=== PATIENT | female | born 1935 | race Caucasian/White ===

== ENCOUNTER 2022-03-27 09:59 | Inpatient (IN) | payer MEDICARE, MEDICAID ==
[~2022-03-27] VITALS: Ht 152.4 cm; Wt 86.2 kg
[2022-03-27] MEDS ORDERED: ONDANSETRON HCL 4MG/2ML INJ IV STA (10:47)
[2022-03-27] MEDS ORDERED: MORPHINE SULFATE 4 MG/ML CPJ (NOT FOR IM USE) IV STA (10:47)
[2022-03-27 10:54] LABS: HEMATOCRIT. 42.5 % (36.0-48.0); HEMOGLOBIN. 14.2 g/dL (12.0-16.0); MEAN CORPUSCULAR HEMOGLOBIN 30.6 pg (28.0-32.0); MEAN CORPUSCULAR VOLUME 91.2 fL (81.0-99.0); MEAN PLATELET VOLUME 8.1 fl (7.4-10.4); PLATELET 154 x1000/uL (130-400); RED BLOOD CELL COUNT 4.66 mill/uL (4.2-5.4); RED CELL DISTRIBUTION WIDTH 14.8 % (11.6-14.6)
[2022-03-27] MEDS ORDERED: SODIUM CHLORIDE 0.9% 250 ML IV ONE (11:00)
[2022-03-27 11:06] LABS: INR 1.1; PARTIAL THROMBOPLASTIN TIME 24.2 sec (23.4-31.0); PROTHROMBIN TIME 11.4 sec (9.6-11.0)
[2022-03-27 11:37] LABS: PLATELET ESTIMATE NORMAL
[2022-03-27 11:48] LABS: BG BASE EXCESS 0.5 mmol/L (-2.0-2.0); BG CARBOXYHEMOGLOBIN 0.5 % (0.5-1.5); BG DEOXYHEMOGLOBIN 8.3 % (0.0-5.0); BG FRACTION INSPIRED OXYGEN 21; BG HCO3 ACT 25.7 mmol/L (22.0-26.0); BG METHEMOGLOBIN 0.3 % (0.0-1.5); BG OXYGEN SATURATION 91.6 % (92.0-98.5); BG OXYHEMOGLOBIN 90.9 % (94.0-97.0); BG PCO2 43.3 mmHg (35.0-45.0); BG PH 7.391 (7.350-7.450); BG SAMPLE SITE RIGHT BRACHIAL; BG TOTAL HEMOGLOBIN 13.7 g/dL (12.0-18.0); BG VENT MODE ROOM AIR
[2022-03-27] MEDS ORDERED: MORPHINE SULFATE 2 MG/ML CPJ (NOT FOR IM USE) IV ONE (12:00)
[2022-03-27 12:10] LABS: CHLORIDE 105 mEq/L (98-107)
[2022-03-27 16:00] VITALS: BP 132/60
[2022-03-27 16:39] VITALS: BP 132/60
[2022-03-27] MEDS ORDERED: ZOLPIDEM TARTRATE 5MG TABLET PO PRN (17:30)
[2022-03-27] MEDS ORDERED: ONDANSETRON HCL 4MG/2ML INJ IV PRN (17:30)
[2022-03-27] MEDS ORDERED: MAGNESIUM HYDROXIDE 400MG/5ML 30ML UDC PO PRN (17:30)
[2022-03-27] MEDS ORDERED: DIPHENHYDRAMINE 50MG/ML VIAL IV PRN (17:30)
[2022-03-27] MEDS ORDERED: ACETAMINOPHEN 325MG TABLET PO PRN (17:30)
[2022-03-27] MEDS ORDERED: NALOXONE HCL 0.4MG/ML VIAL IV PRN (17:45)
[2022-03-27 20:00] VITALS: BP 177/86
[2022-03-27] MEDS: CLONIDINE 0.1MG TABLET PO PRN (21:16)
[2022-03-27] MEDS: FAMOTIDINE 20MG TABLET PO SCH (21:17)
[2022-03-27] MEDS: HYDROCODONE/ACETAMINOPHEN 10/325MG TABLET PO PRN (21:17)
[2022-03-27] MEDS: SODIUM CHLORIDE 0.9% INJ 3ML FLUSH IVF SCH (21:19)
[2022-03-27] MEDS ORDERED: HYDROXYZINE 25MG TABLET PO PRN (22:00)
[2022-03-28] VITALS: BP 135/66
[2022-03-28 04:00] VITALS: BP 122/61
[2022-03-28 08:00] VITALS: BP 126/70
[2022-03-28] MEDS: MELOXICAM 7.5MG TABLET PO SCH (09:26)
[2022-03-28] MEDS: LOSARTAN POTASSIUM 50 MG TABLET PO SCH (09:27)
[2022-03-28] MEDS: HYDROCHLOROTHIAZIDE 25MG TABLET PO SCH (09:27)
[2022-03-28] MEDS: CHOLECALCIFEROL (D3) 1000 UNIT TABLET PO SCH (09:27)
[2022-03-28] MEDS: ACETAMINOPHEN 325MG TABLET PO PRN (09:35)
[2022-03-28 12:00] VITALS: BP 126/74
[2022-03-28] MEDS: SODIUM CHLORIDE 0.9% INJ 3ML FLUSH IVF SCH ×2 (13:10→21:12)
[2022-03-28 16:00] VITALS: BP 138/78
[2022-03-28] MEDS: HYDROCODONE/ACETAMINOPHEN 10/325MG TABLET PO PRN (17:59)
[2022-03-28 20:00] VITALS: BP 149/90
[2022-03-28] MEDS ORDERED: ENOXAPARIN 30MG/0.3ML SYR SUBCUT SCH (21:00)
[2022-03-28] MEDS: FAMOTIDINE 20MG TABLET PO SCH (21:11)
[2022-03-28] MEDS: ENOXAPARIN 100MG/ML SYR SUBCUT SCH (21:11)
[2022-03-28] MEDS: ATORVASTATIN CALCIUM 10MG TABLET PO SCH (21:13)
[2022-03-28] MEDS ORDERED: IOHEXOL-350 100 ML BOTTLE ONE (23:09)
[2022-03-29] VITALS: BP 135/71
[2022-03-29 04:00] VITALS: BP 133/74
[2022-03-29] MEDS: SODIUM CHLORIDE 0.9% INJ 3ML FLUSH IVF SCH ×3 (05:11→22:00)
[2022-03-29 07:48] LABS: HEMATOCRIT 40.1 % (36.0-48.0); HEMOGLOBIN 13.3 g/dL (12.0-16.0); MEAN CORPUSCULAR HEMOGLOBIN 29.9 pg (28.0-32.0); MEAN CORPUSCULAR VOLUME 89.8 fL (81.0-99.0); PLATELET 149 x1000/uL (130-400); RED BLOOD CELL COUNT 4.47 mill/uL (4.2-5.4); RED CELL DISTRIBUTION WIDTH 14.8 % (11.6-14.6)
[2022-03-29 08:00] VITALS: BP 137/76
[2022-03-29] MEDS: HYDROCHLOROTHIAZIDE 25MG TABLET PO SCH (09:14)
[2022-03-29] MEDS: LOSARTAN POTASSIUM 50 MG TABLET PO SCH (09:14)
[2022-03-29] MEDS: CHOLECALCIFEROL (D3) 1000 UNIT TABLET PO SCH (09:14)
[2022-03-29] MEDS: HYDROCODONE/ACETAMINOPHEN 10/325MG TABLET PO PRN ×2 (09:14→17:24)
[2022-03-29] MEDS: ENOXAPARIN 100MG/ML SYR SUBCUT SCH ×2 (09:15→20:53)
[2022-03-29] MEDS: MELOXICAM 7.5MG TABLET PO SCH (09:45)
[2022-03-29] MEDS: MAGNESIUM/ALUMINUM HYDROXIDE/SIMETHICONE 30ML UDC PO PRN ×2 (10:26→22:10)
[2022-03-29 12:00] VITALS: BP 145/78
[2022-03-29 15:42] VITALS: BP 117/71
[2022-03-29 20:00] VITALS: BP 141/78
[2022-03-29] MEDS: ATORVASTATIN CALCIUM 10MG TABLET PO SCH (20:53)
[2022-03-29] MEDS: FAMOTIDINE 20MG TABLET PO SCH (20:53)
[2022-03-30] VITALS: BP 120/66
[2022-03-30 04:00] VITALS: BP 96/6
[2022-03-30] MEDS: SODIUM CHLORIDE 0.9% INJ 3ML FLUSH IVF SCH ×3 (06:00→21:32)
[2022-03-30 08:00] VITALS: BP 144/95
[2022-03-30] MEDS: MELOXICAM 7.5MG TABLET PO SCH (09:00)
[2022-03-30] MEDS: HYDROCHLOROTHIAZIDE 25MG TABLET PO SCH (09:01)
[2022-03-30] MEDS: CHOLECALCIFEROL (D3) 1000 UNIT TABLET PO SCH (09:01)
[2022-03-30] MEDS: LOSARTAN POTASSIUM 50 MG TABLET PO SCH (09:02)
[2022-03-30] MEDS: ENOXAPARIN 100MG/ML SYR SUBCUT SCH ×2 (09:04→21:23)
[2022-03-30] MEDS: HYDROCODONE/ACETAMINOPHEN 10/325MG TABLET PO PRN ×2 (09:09→22:45)
[2022-03-30 12:00] VITALS: BP 125/65
[2022-03-30 16:00] VITALS: BP 113/59
[2022-03-30 20:00] VITALS: BP 139/69
[2022-03-30] MEDS: FAMOTIDINE 20MG TABLET PO SCH (21:23)
[2022-03-30] MEDS: ATORVASTATIN CALCIUM 10MG TABLET PO SCH (21:23)
[2022-03-30] MEDS: MAGNESIUM/ALUMINUM HYDROXIDE/SIMETHICONE 30ML UDC PO PRN (21:25)
[2022-03-31] VITALS: BP 127/69
[2022-03-31 04:00] VITALS: BP 136/75
[2022-03-31] MEDS: SODIUM CHLORIDE 0.9% INJ 3ML FLUSH IVF SCH ×3 (05:22→21:02)
[2022-03-31 08:00] VITALS: BP 140/77
[2022-03-31] MEDS: ENOXAPARIN 100MG/ML SYR SUBCUT SCH ×2 (08:42→20:47)
[2022-03-31] MEDS: HYDROCHLOROTHIAZIDE 25MG TABLET PO SCH (08:42)
[2022-03-31] MEDS: MELOXICAM 7.5MG TABLET PO SCH (08:42)
[2022-03-31] MEDS: CHOLECALCIFEROL (D3) 1000 UNIT TABLET PO SCH (08:43)
[2022-03-31] MEDS: LOSARTAN POTASSIUM 50 MG TABLET PO SCH (08:43)
[2022-03-31] MEDS: HYDROCODONE/ACETAMINOPHEN 10/325MG TABLET PO PRN ×3 (08:44→20:57)
[2022-03-31 12:00] VITALS: BP 116/62
[2022-03-31 16:00] VITALS: BP 156/72
[2022-03-31 20:00] VITALS: BP 176/69
[2022-03-31] MEDS: ATORVASTATIN CALCIUM 10MG TABLET PO SCH (20:46)
[2022-03-31] MEDS: FAMOTIDINE 20MG TABLET PO SCH (20:46)
[2022-03-31] MEDS: CLONIDINE 0.1MG TABLET PO PRN (20:46)
[2022-04-01] VITALS: BP 158/85
[2022-04-01 04:00] VITALS: BP 150/80
[2022-04-01] MEDS: SODIUM CHLORIDE 0.9% INJ 3ML FLUSH IVF SCH ×3 (05:50→21:26)
[2022-04-01 06:06] LABS: BASOPHILS % 0.4 % (0.0-2.0); EOSINOPHILS % 0.8 % (0.0-5.0); HEMATOCRIT. 38.9 % (36.0-48.0); HEMOGLOBIN. 13.4 g/dL (12.0-16.0); LYMPHOCYTES % 13.8 % (20.0-50.0); MEAN CORPUSCULAR HEMOGLOBIN 30.5 pg (28.0-32.0); MEAN CORPUSCULAR VOLUME 88.3 fL (81.0-99.0); MEAN PLATELET VOLUME 8.7 fl (7.4-10.4); MONOCYTES % 8.8 % (2.0-8.0); NEUTROPHILS % 76.2 % (40.0-76.0); PLATELET 180 x1000/uL (130-400); RED CELL DISTRIBUTION WIDTH 14.3 % (11.6-14.6)
[2022-04-01 06:19] LABS: CHLORIDE 94 mEq/L (98-107)
[2022-04-01 08:00] VITALS: BP 124/70
[2022-04-01] MEDS: ENOXAPARIN 100MG/ML SYR SUBCUT SCH ×2 (08:58→21:25)
[2022-04-01] MEDS: MELOXICAM 7.5MG TABLET PO SCH (08:59)
[2022-04-01] MEDS: HYDROCHLOROTHIAZIDE 25MG TABLET PO SCH (08:59)
[2022-04-01] MEDS: LOSARTAN POTASSIUM 50 MG TABLET PO SCH (08:59)
[2022-04-01] MEDS: CHOLECALCIFEROL (D3) 1000 UNIT TABLET PO SCH (08:59)
[2022-04-01] MEDS: HYDROCODONE/ACETAMINOPHEN 10/325MG TABLET PO PRN ×2 (09:09→15:28)
[2022-04-01] MEDS ORDERED: POTASSIUM CHLORIDE 20MEQ TABLET SR PO NR (11:30)
[2022-04-01 12:00] VITALS: BP 98/53
[2022-04-01 16:00] VITALS: BP 109/61
[2022-04-01 20:00] VITALS: BP 141/82
[2022-04-01] MEDS: ATORVASTATIN CALCIUM 10MG TABLET PO SCH (21:26)
[2022-04-01] MEDS: FAMOTIDINE 20MG TABLET PO SCH (21:26)
[2022-04-02] VITALS: BP 112/63
[2022-04-02 04:00] VITALS: BP 124/66
[2022-04-02] MEDS: SODIUM CHLORIDE 0.9% INJ 3ML FLUSH IVF SCH ×3 (06:00→21:21)
[2022-04-02 08:00] VITALS: BP 125/69
[2022-04-02] MEDS: LOSARTAN POTASSIUM 50 MG TABLET PO SCH (09:23)
[2022-04-02] MEDS: HYDROCHLOROTHIAZIDE 25MG TABLET PO SCH (09:23)
[2022-04-02] MEDS: MELOXICAM 7.5MG TABLET PO SCH (09:23)
[2022-04-02] MEDS: CHOLECALCIFEROL (D3) 1000 UNIT TABLET PO SCH (09:23)
[2022-04-02] MEDS: ENOXAPARIN 100MG/ML SYR SUBCUT SCH (09:24)
[2022-04-02] MEDS: ACETAMINOPHEN 325MG TABLET PO PRN (11:44)
[2022-04-02 12:00] VITALS: BP 132/66
[2022-04-02 16:00] VITALS: BP 125/62
[2022-04-02 20:00] VITALS: BP 110/56
[2022-04-02] MEDS: FAMOTIDINE 20MG TABLET PO SCH (21:20)
[2022-04-02] MEDS: ATORVASTATIN CALCIUM 10MG TABLET PO SCH (21:20)
[2022-04-03] VITALS: BP 138/62
[2022-04-03] MEDS: ACETAMINOPHEN 325MG TABLET PO PRN ×3 (00:45→18:56)
[2022-04-03 04:00] VITALS: BP 148/92
[2022-04-03] MEDS: SODIUM CHLORIDE 0.9% INJ 3ML FLUSH IVF SCH ×2 (05:25→12:20)
[2022-04-03 08:00] VITALS: BP 149/66
[2022-04-03] MEDS ORDERED: ENOXAPARIN 100MG/ML SYR SUBCUT SCH (09:00)
[2022-04-03] MEDS: HYDROCHLOROTHIAZIDE 25MG TABLET PO SCH (09:05)
[2022-04-03] MEDS: LOSARTAN POTASSIUM 50 MG TABLET PO SCH (09:05)
[2022-04-03] MEDS: CHOLECALCIFEROL (D3) 1000 UNIT TABLET PO SCH (09:05)
[2022-04-03] MEDS: MELOXICAM 7.5MG TABLET PO SCH (09:05)
[2022-04-03 11:05] LABS: CLARITY URINE CLEAR (CLEAR); COLOR URINE YELLOW (YELLOW); KETONES URINE NEGATIVE (NEGATIVE); LEUKOCYTE ESTERASE URINE NEGATIVE (NEGATIVE); NITRITE URINE NEGATIVE (NEGATIVE); OCCULT BLOOD URINE 1+ (NEGATIVE); PH URINE 6.5 (4.5-8.0); PROTEIN URINE NEGATIVE (NEGATIVE); SPECIFIC GRAVITY URINE 1.008 (1.005-1.030); UROBILINOGEN URINE 0.2 E.U./dL (0.2-1.0)
[2022-04-03 12:23] VITALS: BP 110/71
[2022-04-03 16:00] VITALS: BP 114/66
[2022-04-03 17:31] VITALS: BP 114/66
[2022-04-03] MEDS: CLONIDINE 0.1MG TABLET PO PRN (20:08)
[2022-04-03] MEDS: ATORVASTATIN CALCIUM 10MG TABLET PO SCH (20:08)
[2022-04-03] MEDS: FAMOTIDINE 20MG TABLET PO SCH (20:08)
== END 2022-04-03 22:13 | DRG 342 ==
LOC: ER 09:59 → EDBEDREQ 13:11 → ENRESERV 14:19 → 7EST 14:53
PROVIDERS: ADMIT Internal Medicine; ATTEND Internal Medicine
DX: S42.032A Displaced fracture of lateral end of left clavicle, initial encounter for closed fracture (principal); I26.99 Other pulmonary embolism without acute cor pulmonale; S12.601A Unspecified nondisplaced fracture of seventh cervical vertebra, initial encounter for closed fracture; I82.412 Acute embolism and thrombosis of left femoral vein; E78.00 Pure hypercholesterolemia, unspecified; S22.32XA Fracture of one rib, left side, initial encounter for closed fracture; M47.892 Other spondylosis, cervical region; I82.432 Acute embolism and thrombosis of left popliteal vein; M19.90 Unspecified osteoarthritis, unspecified site; M85.80 Other specified disorders of bone density and structure, unspecified site; I10 Essential (primary) hypertension; M24.28 Disorder of ligament, vertebrae; M48.02 Spinal stenosis, cervical region; Z20.822 Contact with and (suspected) exposure to COVID-19; W18.30XA Fall on same level, unspecified, initial encounter; Y93.89 Activity, other specified; Y92.89 Other specified places as the place of occurrence of the external cause; Y99.8 Other external cause status
CPT/HCPCS: 36415; 36600; 71045; 71250; 71275; 72141; 73030; 80048; 80053; 81003; 82375; 82805; 83880; 84484; 85025; 85027; 87426; 93005; 93970; 97162; 97166; 97530; 99291; A4565; J1200; J1650; J2270; J2405; J7050; Q9967